=== PATIENT | male | born 1945 | race Caucasian/White ===

== ENCOUNTER 2024-01-17 10:14 | Emergency (ER) | payer OTHER, MEDICARE | END 2024-01-17 11:01 | disposition other institution (70) | LOC: DL.ED 10:14 | DX: S16.1XXA Strain of muscle, fascia and tendon at neck level, initial encounter (principal); F17.210 Nicotine dependence, cigarettes, uncomplicated; Z79.51 Long term (current) use of inhaled steroids; Z79.82 Long term (current) use of aspirin; Z79.899 Other long term (current) drug therapy; X50.0XXA Overexertion from strenuous movement or load, initial encounter | CPT/HCPCS: 99284 ==

== ENCOUNTER 2024-11-05 11:31 | Emergency (ER) | payer OTHER ==
[2024-11-05 12:07] LABS: BASOPHILS PERCENT AUTO 0.1 % (0.0-1.0); EOSINOPHILS PERCENT AUTO 0.3 % (1.0-3.0); HEMATOCRIT 45.4 % (40.0-54.0); HEMOGLOBIN 15.1 g/dL (14.0-18.0); LYMPHOCYTES PERCENT AUTO 12.5 % (20.5-50.1); MEAN CORPUSCULAR HEMOGLOBIN 31.2 pg (27.0-34.0); MEAN CORPUSCULAR HGB CONC 33.3 g/dL (33.0-35.0); MEAN CORPUSCULAR VOLUME 93.8 fL (80-100); MONOCYTES PERCENT AUTO 8.4 % (2-8); NEUTROPHILS PERCENT AUTO 78.7 % (42.2-75.2); PLATELET COUNT,PLT 147 10^3/uL (150-450); RED BLOOD CELL COUNT 4.84 10^6/uL (4.6-6.2); WHITE BLOOD CELL COUNT,WBC 11.6 10^3/uL (5.0-10.0)
[2024-11-05 12:23] LABS: PROTHROMBIN TIME 10.3 SEC (9.0-12.0)
[2024-11-05 12:29] LABS: A/G RATIO 0.8; ALBUMIN 3.5 g/dL (3.4-5.0); ANION GAP 17.2 mEq/L (7-13); BILIRUBIN TOTAL 1.7 mg/dL (0.2-1.0); BUN/CREATININE RATIO 10.5 (No establ ref range); CREATININE 1.53 mg/dL (0.70-1.30); EST CRCL DRUG DOSING (CG) 41.87 mL/min; POTASSIUM,K 4.2 mmol/L (3.5-5.1); PROTEIN TOTAL,TP 7.8 g/dL (6.4-8.2)
[2024-11-05 12:51] LABS: APPEARANCE,URINE CLEAR (CLEAR); BILIRUBIN,URINE NEGATIVE (NEGATIVE); COLOR,URINE YELLOW (YELLOW); GLUCOSE,URINE NEGATIVE (NEGATIVE); KETONES,URINE NEGATIVE (NEGATIVE); LEUKOCYTE ESTERASE,URINE NEGATIVE (NEGATIVE); NITRITE,URINE NEGATIVE (NEGATIVE); OCCULT BLOOD,URINE SMALL (NEGATIVE); PROTEIN,URINE 100 (NEGATIVE)
[2024-11-05 13:04] LABS: BACTERIA,URINE FEW /HPF (0-FEW/HPF); EPITHELIAL CELLS,URINE FEW /HPF (NOT SEEN); MUCUS,URINE FEW /LPF (NOT SEEN); RBC,URINE 20-30 /HPF (0-5); WBC,URINE 0-5 /HPF (0-5/HPF)
== END 2024-11-05 13:45 | disposition home or self-care (01) ==
LOC: DL.ED 11:31
DX: J20.9 Acute bronchitis, unspecified (principal); R33.9 Retention of urine, unspecified; Z79.899 Other long term (current) drug therapy; Z79.82 Long term (current) use of aspirin
CPT/HCPCS: 36415; 51702; 71045; 80053; 81001; 83880; 84484; 85025; 85610; 87428-QW; 93005; 99285